=== PATIENT | female | born 1970 | race Two or more races ===

== ENCOUNTER 2020-09-24 09:27 | Outpatient (CLI) | payer OTHER | END 2020-09-24 09:31 | disposition home or self-care (01) | LOC: RX STUDY 09:27 | PROVIDERS: ATTEND Internal Medicine Gastroenterology | DX: R10.13 Epigastric pain (principal); K21.9 Gastro-esophageal reflux disease without esophagitis; Z12.11 Encounter for screening for malignant neoplasm of colon; R13.19 Other dysphagia ==